=== PATIENT | female | born 1990 | race Caucasian/White ===

== ENCOUNTER 2016-07-02 19:45 | Emergency (ER) | payer SELFPAY ==
[2016-07-02 20:09] LABS: PH,URINE 6.5 (5.0-8.0); URINE BILIRUBIN NEGATIVE (NEGATIVE); URINE BLOOD 4+ (NEGATIVE); URINE GLUCOSE (UA) NEGATIVE (NEGATIVE); URINE LEUKOCYTE ESTERASE TRACE (NEGATIVE); URINE NITRITE NEGATIVE (NEGATIVE); URINE PROTEIN 2+ (NEGATIVE); URINE UROBILINOGEN NORMAL (0-1 mg/dl)
[2016-07-02 20:11] LABS: HCG,QUALITATIVE URINE POSITIVE
[2016-07-02 20:12] LABS: URINE APPEARANCE SL CLOUDY; URINE COLOR SALMON
[2016-07-02 20:21] LABS: URINE BACTERIA FEW; URINE EPITHELIAL CELLS 0 /hpf; URINE RBC >100 /hpf
== END 2016-07-02 21:58 | disposition home or self-care (01) ==
LOC: ED 19:45
DX: O26.891 Other specified pregnancy related conditions, first trimester (principal); R10.9 Unspecified abdominal pain; R31.9 Hematuria, unspecified; Z3A.13 13 weeks gestation of pregnancy